=== PATIENT | female | born 1970 | race Caucasian/White ===

== ENCOUNTER 2016-10-11 12:25 | Inpatient (IN) | payer OTHER ==
[~2016-10-11] VITALS: Ht 167.6 cm; Wt 68.6 kg
[2016-10-11] VITALS (175 sets, daily range): BP systolic 103–153; BP diastolic 63–873; PULSE 70–97; TEMP 98.1–99.1; O2SAT 92–100
[~2016-10-11 12:25] MED LIST: ASPIRIN 81M81 MG/TA2 PO; DUO-KAPS1 CAP PO
[2016-10-11 14:13] LABS: BASO % 0.3 % (0.0-2.0); EOS % 0.5 % (0-4.0); GRAN # 4.2 (1.4-6.5); GRAN % 65.4 % (42.2-75.2); HEMATOCRIT 39.8 % (37.0-47.0); HEMOGLOBIN 13.4 g/dl (12.5-16.0); LYMPH # 1.7 (1.2-3.4); MEAN CELL VOLUME 83 fl (80.0-100.0); MEAN CORPUSCULAR HEMOGLOBIN 28 pg (27.0-31.0); MEAN CORPUSCULAR HGB CONC 34 g/dl (33.0-37.0); MEAN PLATELET VOLUME 9.4 fl (7.4-10.4); MONO # 0.5 (0.1-0.6); MONO % 7.6 % (1.7-9.3); PLATELET COUNT 246 K/mm3 (130-400); REDCELL DISTRIBUTION WIDTH-CV 11.9 % (11.5-14.5); WHITE BLOOD COUNT 6.3 K/mm3 (4.8-10.8)
[2016-10-11 14:33] LABS: ADJUSTED CALCIUM 9.2 mg/dL (8.4-10.2); ALANINE AMINOTRANSFERASE 33 U/L (9-52); ALBUMIN 4.3 gm/dL (3.5-5.0); ALKALINE PHOSPHATASE 70 U/L (50-136); ANION GAP 12 mmol/L (7-16); BILIRUBIN,TOTAL 0.9 mg/dL (0.0-1.0); BLOOD UREA NITROGEN 11 mg/dL (7-17); CALCIUM 9.4 mg/dL (8.4-10.2); CARBON DIOXIDE 25 mmol/L (22-30); CHLORIDE 106 mmol/L (98-107); CREATININE, serum 0.71 mg/dL (0.52-1.25); GLUCOSE 83 mg/dL (74-106); POTASSIUM 3.6 mmol/L (3.4-5.0); SODIUM 143 mmol/L (137-145); TOTAL PROTEIN 7.8 gm/dL (6.4-8.2)
[2016-10-11 14:39] LABS: C-REACTIVE PROTEIN < 0.5 mg/dL (0.0-0.9)
[2016-10-11 15:50] LABS: INR 1.1 (0.8-3.0); PROTHROMBIN TIME 11.7 SECONDS (9.7-12.8)
[2016-10-11 15:52] LABS: PARTIAL THROMBOPLASTIN TIME 34.7 SECONDS (26.0-37.0)
[2016-10-11 16:58] LABS: CHOLESTEROL 233 mg/dL (120-200); HDL CHOLESTEROL 51 mg/dL; LDL CHOLESTEROL 151 mg/dL; TRIGLYCERIDE 154 mg/dL
[2016-10-11 22:17] LABS: THYROXINE (T4)-TOTAL 9.3 ug/dL (5.5-11.0)
[2016-10-11 23:01] LABS: THYROID STIMULATING HORMONE 1.86 uIU/mL (0.465-4.680)
[2016-10-12] VITALS (280 sets, daily range): BP systolic 99–124; BP diastolic 56–80; PULSE 76–84; TEMP 98.1–98.7; O2SAT 92–100
[2016-10-12 06:06] LABS: BASO # 0.1 (0.0-0.2); EOS # 0.1 (0.0-0.7); EOS % 2.3 % (0-4.0); GRAN # 2.3 (1.4-6.5); GRAN % 43.1 % (42.2-75.2); LYMPH # 2.3 (1.2-3.4); LYMPH % 43.4 % (20.0-51.0); MEAN CELL VOLUME 85 fl (80.0-100.0); MEAN CORPUSCULAR HEMOGLOBIN 29 pg (27.0-31.0); MEAN CORPUSCULAR HGB CONC 34 g/dl (33.0-37.0); MEAN PLATELET VOLUME 9.8 fl (7.4-10.4); MONO # 0.5 (0.1-0.6); PLATELET COUNT 209 K/mm3 (130-400); RED BLOOD COUNT 4.21 M/mm3 (4.10-5.30); REDCELL DISTRIBUTION WIDTH-CV 11.9 % (11.5-14.5); WHITE BLOOD COUNT 5.2 K/mm3 (4.8-10.8)
[2016-10-12 06:09] LABS: CALCIUM 8.3 mg/dL (8.4-10.2); CREATININE, serum 0.68 mg/dL (0.52-1.25); POTASSIUM 3.9 mmol/L (3.4-5.0)
[2016-10-12 06:19] LABS: HEMATOCRIT 35.6 % (37.0-47.0)
[2016-10-12 16:38] LABS: HOMOCYSTEINE 4.4 umol/L (4.0-14.0)
[2016-10-13 04:26] VITALS: BP 114/69; PULSE 61; TEMP 98.2
[2016-10-13 07:48] LABS: HEMATOCRIT 38.2 % (37.0-47.0); HEMOGLOBIN 12.7 g/dl (12.5-16.0); MEAN CELL VOLUME 85 fl (80.0-100.0); MEAN CORPUSCULAR HEMOGLOBIN 28 pg (27.0-31.0); MEAN CORPUSCULAR HGB CONC 33 g/dl (33.0-37.0); MEAN PLATELET VOLUME 9.9 fl (7.4-10.4); PLATELET COUNT 229 K/mm3 (130-400); RED BLOOD COUNT 4.48 M/mm3 (4.10-5.30); REDCELL DISTRIBUTION WIDTH-CV 11.9 % (11.5-14.5)
[2016-10-13 08:31] VITALS: BP 110/58; PULSE 76; TEMP 98.3
[2016-10-13 09:10] LABS: PT G20210A MUTATION B Negative (Negative)
[2016-10-13 09:10] LABS: FACTOR V LEIDEN MUTATION B Negative (Negative)
[2016-10-13 09:25] LABS: INR 1.1 (0.8-3.0); PROTHROMBIN TIME 12.4 SECONDS (9.7-12.8)
[2016-10-13] MEDS ORDERED: LIPITOR 40MG TA40 MG PO (11:16)
[2016-10-13] MEDS ORDERED: PLAVIX 75MG TAB75 MG PO (11:16)
[2016-10-14 10:13] LABS: PROTEIN C ACTIVITY 108 % (70-150)
[2016-10-14 10:48] LABS: ALBUMIN FRACTION 4.2 g/dL (2.6-4.5); ALPHA 1 FRACTION 0.3 g/dL (0.3-0.5); ALPHA 1 PERCENTAGE 3.7 % (3.4-8.3); ALPHA 2 FRACTION 0.6 g/dL (0.6-1.2); ALPHA 2 PERCENTAGE 9.3 % (8.4-17.5); BETA 1 FRACTION 0.4 g/dL (0.4-0.6); BETA 1 PERCENTAGE 5.9 % (5.4-8.9); BETA 2 FRACTION 0.3 g/dL (0.2-0.5); BETA 2 PERCENTAGE 4.9 % (3.8-7.7); GAMMA PERCENTAGE 15.2 % (8.1-23.0); SERUM PROTEIN TOTAL 6.8 g/dL (6.1-7.7)
[2016-10-15 14:00] LABS: LUPUS ANTICOAGULANT INR 1.1 (()); LUPUS ANTICOAGULANT PT 12.1 sec (()); LUPUS ANTICOAGULANT PTT 97 sec (26 - 36)
[2016-10-16 17:33] LABS: .ANTICARDIOLIPIN IGG <9.4 GPL (()); .ANTICARDIOLIPIN IGM <9.4 MPL (())
[2016-10-17 14:48] LABS: LUPUS ANTICOAGULANT DRVVT 0.9 ratio (())
== END 2016-10-13 12:20 | disposition home or self-care (01) | DRG 66 ==
LOC: COL.ER 12:25 → IMCU 15:47 → MEDICAL 10-12 15:38
PROVIDERS: Family Medicine; Physician Assistant; Psychiatry & Neurology Neurology
DX: I63.442 Cerebral infarction due to embolism of left cerebellar artery (principal); E78.5 Hyperlipidemia, unspecified; G43.109 Migraine with aura, not intractable, without status migrainosus; I69.322 Dysarthria following cerebral infarction; I69.392 Facial weakness following cerebral infarction; Z82.3 Family history of stroke
CPT/HCPCS: 99223-AI; 99233-AI; 99239; J1200; J1644; J1885; J2250; J2765; J3010; J7030; J7050

== ENCOUNTER 2016-10-16 07:57 | Outpatient (CLI) | payer OTHER ==
[~2016-10-16] VITALS: Ht 167.6 cm; Wt 68.2 kg
[~2016-10-16 07:57] MED LIST changes: +LIPITOR 40MG TA40 MG PO; +PLAVIX 75MG TAB75 MG PO
[2016-10-16 08:41] VITALS: BP 119/60; PULSE 70; TEMP 98.3
[2016-10-16] MEDS ORDERED: CEPHALEXIN500 M1 PO (09:56)
== END 2016-10-16 12:10 | disposition home or self-care (01) ==
LOC: EUO 07:57 → COL.RAD 08:00 → EUO 12:10
DX: I63.8 Other cerebral infarction (principal)
CPT/HCPCS: C1764

== ENCOUNTER → 2017-06-13 | Outpatient (CLI) | payer OTHER ==
[~2017-06-13] MED LIST changes: +CEPHALEXIN500 M1 PO
== END ==
LOC: MC.RAD 11:36
DX: Z12.31 Encounter for screening mammogram for malignant neoplasm of breast (principal)

== ENCOUNTER → 2017-11-27 | Outpatient (CLI) | payer OTHER | LOC: MC.RAD 06:57 | DX: N63.13 Unspecified lump in the right breast, lower outer quadrant (principal) ==

== ENCOUNTER → 2017-12-08 | Outpatient (CLI) | payer OTHER | LOC: MC.RAD 12:37 | DX: N60.01 Solitary cyst of right breast (principal); N63.10 Unspecified lump in the right breast, unspecified quadrant ==

== ENCOUNTER → 2019-06-28 | Outpatient (CLI) | payer OTHER | LOC: MC.RAD 15:36 | DX: Z12.31 Encounter for screening mammogram for malignant neoplasm of breast (principal) ==

== ENCOUNTER 2019-09-24 22:08 | Emergency (ER) | payer OTHER ==
[~2019-09-24] VITALS: Ht 167.6 cm; Wt 68.2 kg
[2019-09-24 22:24] VITALS: TEMP 98.2
[2019-09-25 00:05] VITALS: BP 128/77; PULSE 84
== END 2019-09-25 00:05 | disposition home or self-care (01) ==
LOC: COL.ER 22:08
DX: S01.01XA Laceration without foreign body of scalp, initial encounter (principal); S06.0X0A Concussion without loss of consciousness, initial encounter; R40.2410 Glasgow coma scale score 13-15, unspecified time; Z86.73 Personal history of transient ischemic attack (TIA), and cerebral infarction without residual deficits; Z79.82 Long term (current) use of aspirin; Z79.02 Long term (current) use of antithrombotics/antiplatelets; W17.89XA Other fall from one level to another, initial encounter; Y92.009 Unspecified place in unspecified non-institutional (private) residence as the place of occurrence of the external cause

== ENCOUNTER 2019-09-26 10:16 | Emergency (ER) | payer OTHER ==
[~2019-09-26] VITALS: Ht 167.6 cm; Wt 68.2 kg
[2019-09-26 10:31] VITALS: BP 118/65; PULSE 86; TEMP 98.6
[2019-09-26 12:31] LABS: BASO # 0.1 (0.0-0.2); EOS # 0.1 (0.0-0.7); EOS % 1.6 % (0-4.0); GRAN # 3.1 (1.4-6.5); HEMATOCRIT 38.9 % (37.0-47.0); HEMOGLOBIN 12.9 g/dl (12.5-16.0); LYMPH # 1.4 (1.2-3.4); LYMPH % 27.5 % (20.0-51.0); MEAN CELL VOLUME 86 fl (80.0-100.0); MEAN CORPUSCULAR HEMOGLOBIN 29 pg (27.0-31.0); MEAN CORPUSCULAR HGB CONC 33 g/dl (33.0-37.0); MEAN PLATELET VOLUME 9.1 fl (7.4-10.4); MONO # 0.5 (0.1-0.6); MONO % 9.7 % (1.7-9.3); PLATELET COUNT 252 K/mm3 (130-400); RED BLOOD COUNT 4.52 M/mm3 (4.10-5.30); REDCELL DISTRIBUTION WIDTH-CV 11.8 % (11.5-14.5)
[2019-09-26 12:43] LABS: PROTHROMBIN TIME 11.1 SECONDS (9.7-12.8)
[2019-09-26 12:45] LABS: ALBUMIN 4.1 gm/dL (3.5-5.0); BILIRUBIN,TOTAL 0.4 mg/dL (0.0-1.0); CALCIUM 8.5 mg/dL (8.4-10.2); CREATININE, serum 0.58 (0.52-1.25); TOTAL PROTEIN 7.1 gm/dL (6.4-8.2)
== END 2019-09-26 13:09 | disposition home or self-care (01) ==
LOC: COL.ER 10:16
PROVIDERS: Physician Assistant
DX: S00.12XA Contusion of left eyelid and periocular area, initial encounter (principal); Z79.02 Long term (current) use of antithrombotics/antiplatelets; Z79.82 Long term (current) use of aspirin; Z86.73 Personal history of transient ischemic attack (TIA), and cerebral infarction without residual deficits; W19.XXXA Unspecified fall, initial encounter; Y92.009 Unspecified place in unspecified non-institutional (private) residence as the place of occurrence of the external cause

== ENCOUNTER → 2019-10-08 | Outpatient (CLI) | payer OTHER ==
[2019-10-08 11:31] VITALS: BP 120/60; PULSE 74; TEMP 97.3
== END ==
LOC: COL.ER 11:09
DX: S01.01XD Laceration without foreign body of scalp, subsequent encounter (principal); X58.XXXD Exposure to other specified factors, subsequent encounter

== ENCOUNTER → 2020-08-16 | Outpatient (CLI) | payer OTHER | LOC: MC.RAD 08:45 | DX: Z12.31 Encounter for screening mammogram for malignant neoplasm of breast (principal) ==

== ENCOUNTER 2021-03-25 09:37 | Emergency (ER) | payer OTHER ==
[~2021-03-25] VITALS: Ht 167.6 cm; Wt 68.2 kg
[2021-03-25 10:17] VITALS: TEMP 98
[2021-03-25 11:28] LABS: BASO # 0.1 (0.0-0.2); BASO % 0.4 % (0.0-2.0); EOS % 0.3 % (0-4.0); GRAN % 85.8 % (42.2-75.2); HEMATOCRIT 41.6 % (37.0-47.0); HEMOGLOBIN 13.4 g/dl (12.5-16.0); LYMPH % 8.3 % (20.0-51.0); MEAN CELL VOLUME 87 fl (80.0-100.0); MEAN CORPUSCULAR HEMOGLOBIN 28 pg (27.0-31.0); MEAN CORPUSCULAR HGB CONC 32 g/dl (33.0-37.0); MEAN PLATELET VOLUME 9.4 fl (7.4-10.4); MONO # 0.6 (0.1-0.6); MONO % 4.9 % (1.7-9.3); PLATELET COUNT 268 K/mm3 (130-400); RED BLOOD COUNT 4.78 M/mm3 (4.10-5.30); REDCELL DISTRIBUTION WIDTH-CV 12.3 % (11.5-14.5)
[2021-03-25 11:39] LABS: ALANINE AMINOTRANSFERASE 27 U/L (4-34); ALBUMIN 4.4 gm/dL (3.5-5.0); ALKALINE PHOSPHATASE 55 U/L (50-136); ANION GAP 3 mmol/L (7-16); AST,SGOT 27 U/L (15-37); BILIRUBIN,TOTAL 0.4 mg/dL (0.0-1.0); BLOOD UREA NITROGEN 15 mg/dL (7-17); CALCIUM 8.6 mg/dL (8.4-10.2); CARBON DIOXIDE 24 mmol/L (22-30); CHLORIDE 112 mmol/L (98-107); CREATININE, serum 0.64 (0.52-1.25); GLUCOSE 115 mg/dL (74-106); LIPASE 177 U/L (23-300); SODIUM 139 mmol/L (137-145); TOTAL PROTEIN 7.3 gm/dL (6.4-8.2)
[2021-03-25 11:41] LABS: C-REACTIVE PROTEIN < 0.5 mg/dL (0.0-0.9)
[2021-03-25 12:40] LABS: COLLECTION METHOD CLEAN CATCH
[2021-03-25 12:45] LABS: MUCOUS Present /lpf; PH 6 (5-8); SQUAMOUS EPITHELIAL 0-2 /hpf; URINE APPEARANCE Clear; URINE BACTERIA None Seen /hpf; URINE BILIRUBIN Negative (NEGATIVE); URINE BLOOD 3+ (NEGATIVE); URINE COLOR Yellow; URINE GLUCOSE Negative (NEGATIVE); URINE KETONE Negative (NEGATIVE); URINE LEUKOCYTE ESTERASE Negative (NEGATIVE); URINE NITRATE Negative (NEGATIVE); URINE PROTEIN(semi-quant) Negative (NEGATIVE); URINE RBC 20-50 /hpf; URINE UROBILINOGEN Negative (NEGATIVE)
[2021-03-25] MEDS ORDERED: NORCO 325 MG-51 TAB PO (13:24)
[2021-03-25 13:39] VITALS: BP 117/69; PULSE 78
== END 2021-03-25 13:41 | disposition home or self-care (01) ==
LOC: COL.ER 09:37
PROVIDERS: Family Medicine
DX: N13.2 Hydronephrosis with renal and ureteral calculous obstruction (principal); G43.909 Migraine, unspecified, not intractable, without status migrainosus; Z86.73 Personal history of transient ischemic attack (TIA), and cerebral infarction without residual deficits; Z79.02 Long term (current) use of antithrombotics/antiplatelets; Z79.82 Long term (current) use of aspirin
CPT/HCPCS: J1885; J2270; J2405; J7120; Q9967

== ENCOUNTER → 2021-09-20 | Outpatient (CLI) | payer OTHER ==
[~2021-09-20] MED LIST changes: +NORCO 325 MG-51 TAB PO
== END ==
LOC: MC.RAD 09:29
DX: Z12.31 Encounter for screening mammogram for malignant neoplasm of breast (principal)

== ENCOUNTER 2023-10-14 16:15 | Emergency (ER) | payer BC ==
[~2023-10-14] VITALS: Ht 167.6 cm; Wt 70.5 kg
[2023-10-14 16:25] VITALS: TEMP 98.1
[2023-10-14] MEDS ORDERED: NS 1,000 ML IV ONE (17:00)
[2023-10-14 17:13] LABS: BASO # 0.1 K/mm3 (0.0-0.2); BASO % 0.7 % (0.0-2.0); EOS # 0.1 K/mm3 (0.0-0.7); EOS % 0.8 % (0.0-4.0); GRAN # 5.4 K/mm3 (1.4-6.5); GRAN % 71.7 % (42.2-75.2); HEMATOCRIT 44.6 % (37.0-47.0); HEMOGLOBIN 14.9 g/dl (12.5-16.0); LYMPH # 1.5 K/mm3 (1.2-3.4); LYMPH % 19.4 % (20.0-51.0); MEAN CELL VOLUME 85 fl (80.0-100.0); MEAN CORPUSCULAR HEMOGLOBIN 29 pg (27-31); MEAN CORPUSCULAR HGB CONC 33 g/dl (33.0-37.0); MEAN PLATELET VOLUME 9.1 fl (7.4-10.4); MONO # 0.5 K/mm3 (0.1-0.6); PLATELET COUNT 269 K/mm3 (130-400); RED BLOOD COUNT 5.22 M/mm3 (4.10-5.30); REDCELL DISTRIBUTION WIDTH-CV 11.9 % (11.5-14.5)
[2023-10-14 17:33] LABS: ALANINE AMINOTRANSFERASE 29 U/L (0-55); ALBUMIN 4.3 gm/dL (3.5-5.0); ALKALINE PHOSPHATASE 76 U/L (40-150); ANION GAP 11 mmol/L (7-16); AST,SGOT 24 U/L (5-34); BILIRUBIN,TOTAL 0.4 mg/dL (0.2-1.2); BLOOD UREA NITROGEN 15 mg/dL (10-20); CARBON DIOXIDE 27 mmol/L (22-29); CHLORIDE 104 mmol/L (98-107); CREATININE, serum 0.84 mg/dL (0.57-1.11); GLUCOSE 168 mg/dL (70-99); POTASSIUM 3.8 mmol/L (3.5-4.5); SODIUM 142 mmol/L (136-145); TOTAL PROTEIN 8.1 gm/dL (6.2-8.1)
[2023-10-14 17:38] LABS: ALCOHOL(ethanol),MEDICAL < 10 mg/dL (0-10)
[2023-10-14 17:39] LABS: TROPONIN-I 0.021 ng/mL (0.00-0.033)
[2023-10-14] MEDS ORDERED: Iohexol 350 - 100 ML VIAL IV ONE (19:23)
[2023-10-14] MEDS ORDERED: NS 50 ML IV SCH (19:24)
[2023-10-14 21:16] VITALS: BP 138/79; PULSE 81
== END 2023-10-14 21:19 | disposition home or self-care (01) ==
LOC: COL.ER 16:15
PROVIDERS: Physician Assistant
DX: R55 Syncope and collapse (principal); Z86.73 Personal history of transient ischemic attack (TIA), and cerebral infarction without residual deficits; Z79.02 Long term (current) use of antithrombotics/antiplatelets; Z79.899 Other long term (current) drug therapy
CPT/HCPCS: J7030; Q9967

== ENCOUNTER → 2024-01-02 | Outpatient (CLI) | payer BC | LOC: MC.RAD 11:00 | DX: Z12.31 Encounter for screening mammogram for malignant neoplasm of breast (principal) ==